=== PATIENT | female | born 1980 | race American Indian/Alaskan Native ===

== ENCOUNTER 2017-08-29 17:13 | Emergency (ER) | payer OTHER, MEDICAID ==
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
[2017-08-29 19:17] VITALS: BP 137/90; PULSE 93; RESP 20; TEMP 98.6; O2SAT 100
--- NOTE | 2017-08-30 09:23 | RAD ---
PROCEDURE: Cervical Spine Radiographs. HISTORY: Pain. COMPARISON: None. FINDINGS: BONES: Alignment maintained. No fracture. Dens Intact. DISC SPACES: Focally narrowed at the C5-6 level with anterior endplate osteophytic changes. SOFT TISSUES: Normal. No prevertebral soft tissue swelling. OTHER FINDINGS: None. IMPRESSION: Mild focal C5-6 degenerative changes.
== END 2017-08-29 19:17 | disposition home or self-care (01) ==
LOC: ED 17:13
DX: S16.1XXA Strain of muscle, fascia and tendon at neck level, initial encounter (principal); S40.022A Contusion of left upper arm, initial encounter; V49.9XXA Car occupant (driver) (passenger) injured in unspecified traffic accident, initial encounter